=== PATIENT | female | born 1960 | race Caucasian/White ===

== ENCOUNTER 2018-02-07 11:56 | Emergency (ER) | payer BC ==
[2018-02-07] MEDS ORDERED: diPHENhydraMINE IV* 50 MG/ML 1 ml VIAL (BENADRYL) ONE (12:03)
[2018-02-07] MEDS ORDERED: methylPREDNISolone 125 MG* 2 ML VIAL ONE (12:03)
[2018-02-07] MEDS ORDERED: Famotidine IV* 10 MG/ML 2 ML (20 mg) ONE ×2 (12:03)
--- NOTE | 2018-02-07 12:10 | ED ---
Allergic Reaction/Systemic - HPI Summary HPI Summary: This patient is a 57 year old F presenting to ED with a chief complaint of anaphylaxis since a bit before 1100. The patient was stung by a bee on the upper lip. She has not had an allergic reaction to bees before. Treatment [employer] includes 2 Benadryl. The patient rates the pain 0/10 in severity. Symptoms aggravated by nothing. Symptoms alleviated by nothing. Patient reports slight throat tightness and face swelling. Patient denies wheezing, nausea, vomiting, light-headedness, and dizziness. Initial vitals include 83 BPM, 95 O2 sat, and BP 166/108. Current vitals after treatment include 85 BPM, 99 O2 sat, and BP 154 /103. Home Medications Medication Instructions Recorded Confirmed Type Lisinopril/HCTZ 20/12.5(NF) 1 tab PO DAILY 02/07/18 02/07/18 History [Zestoretic 20/12.5(NF)] Ropinirole TAB* [Requip TAB*] 0.5 mg PO DAILY 02/07/18 02/07/18 History - History of Current Complaint Chief Complaint: EDAllergicReaction Hx Obtained From: Patient Onset/Duration: Sudden Onset, Started hours ago - a bit before 1100 today, Still Present Timing: Constant, Lasting Hours - a bit before 1100 today Severity Currently: None Pain Intensity: 0 Pain Scale Used: 0-10 Numeric Location: Discrete @ - upper lip Character: Swelling - face Aggravating Factor(s): Nothing Alleviating Factor(s): Nothing Associated Signs And Symptoms: Positive: Other: - Patient reports slight throat tightness and face swelling. Patient denies wheezing, nausea, vomiting, light- headedness, and dizziness. - Allergies/Home Medications Allergies/Adverse Reactions: Allergies Allergy/AdvReac Type Severity Reaction Status Date / Time bee venom protein (honey bee) Allergy Anaphylatic Verified 02/07/18 12:21 Shock Home Medications: Home Medications Lisinopril/HCTZ 20/12.5(NF) [Zestoretic 20/12.5(NF)] 1 tab PO DAILY 02/07/18 [ History Confirmed 02/07/18] Ropinirole TAB* [Requip TAB*] 0.5 mg PO DAILY 02/07/18 [History Confirmed ] PMH/Surg Hx/FS Hx/Imm Hx Endocrine/Hematology History: Denies: Hx Diabetes Cardiovascular History: Reports: Hx Hypertension - Surgical History Surgery Procedure, Year, and Place: bone spur surgery Infectious Disease History: No Infectious Disease History: Denies: Traveled Outside the [place] in Last 30 Days - Family History Known Family History: Positive: Cardiac Disease - father, Diabetes - mother - Social History Alcohol Use: Occasionally - wine Hx Substance Use: No Hx Tobacco Use: No Review of Systems Positive: Other - bee sting on upper lip, face swelling, slight throat tightness Positive: Other - denies wheezing Negative: Vomiting, Nausea Neurological: Other - denies light-headedness and dizziness All Other Systems Reviewed And Are Negative: Yes Physical Exam - Summary Physical Exam Summary: Appearance: Well-appearing, moderate pain distress, well-nourished Skin: Warm, color reflects adequate perfusion, dry Head: Normal Head/Face inspection, atraumatic Eyes: Conjunctiva clear ENT: Normal inspection Neck: Supple, no nodes, no JVD Respiratory: Lungs clear, normal breath sounds, no respiratory distress Cardio: RRR, No murmur, pulses normal, brisk capillary refill Abdomen: Soft, nontender Bowel sounds: Present Musculoskeletal: Strength Intact/ROM intact, no calf tenderness, no edema. Psychological: Normal Neuro: Alert, muscle tone normal, no focal deficit Triage Information Reviewed: Yes Vital Signs On Initial Exam: Initial Vitals Temp Pulse Resp BP Pulse Ox 99.3 F 98 20 166/108 96 02/07/18 11:59 02/07/18 11:59 02/07/18 11:59 02/07/18 11:59 02/07/18 11:59 Vital Signs Reviewed: Yes Diagnostics - Vital Signs Vital Signs Temp Pulse Resp BP Pulse Ox 02/07/18 11:59 99.3 F 98 20 166/108 96 - Laboratory Lab Statement: Any lab studies that have been ordered have been reviewed, and results considered in the medical decision making process. Re-Evaluation - Re-Evaluation First Eval Re-Evaluation Time: 14:21 Change: Improved Comment: The patient's lip swelling is down and there is no throat tightness. Current vitals 82 BPM, 95% O2 sat, BP is 112/66. Allergic Reaction Course/Dx - Course Assessment/Plan: In the ED course, the patient was given an epi. Allergies noted. High blood pressure noted. Pt medications reviewed this visit. After given an epi, the patient's condition improved. The patient will be discharged. She was given instructions to continue Benadryl, Pepcid, and prednisone. The patient is agreeable with this plan. - Diagnoses Differential Diagnosis/HQI/PQRI: Positive: Other - elevated blood pressure under poor control, anaphylactic reaction to bee sting Provider Diagnoses: Elevated blood pressure reading with diagnosis of hypertension, Anaphylactic reaction to bee sting Discharge - Discharge Plan Condition: Stable Disposition: HOME Prescriptions: EPINEPHrine [Epipen] 0.3 mg IJ ONCE #1 auto.injct Famotidine TAB 40 MG(NF) [Pepcid TAB 40 MG(NF)] 40 mg PO DAILY #5 tab predniSONE TAB* [Deltasone 20 MG TAB*] 40 mg PO DAILY #10 tab Patient Education Materials: Anaphylaxis (ED) Referrals: Rima Bhandari MD [Primary Care Provider] - 3 Days Additional Instructions: We gave you Epinephrine, solumedrol, benadryl and pepcid while you were in the ER. You will need to continue the benadryl 50mg four times a day for at least the next 48 hrs, and then as needed. You may also take over the counter non-sedating medications, either Claritin or Zyrtec with the benadryl. We are sending prescriptions for pepcid and prednisone and an epipen. Start the prednisone and pepcid tomorrow. Call 911 if you get another beesting, and then administer your epipen. Return to the ER if you have new or worsening symptoms.
[2018-02-07 15:42] VITALS: BP 123/77
== END 2018-02-07 15:41 | disposition home or self-care (01) ==
LOC: ED 11:56
DX: T63.441A Toxic effect of venom of bees, accidental (unintentional), initial encounter (principal); T78.2XXA Anaphylactic shock, unspecified, initial encounter; X58.XXXA Exposure to other specified factors, initial encounter; R07.0 Pain in throat; R22.0 Localized swelling, mass and lump, head; I10 Essential (primary) hypertension; Z91.030 Bee allergy status; Z82.49 Family history of ischemic heart disease and other diseases of the circulatory system; Z83.3 Family history of diabetes mellitus
CPT/HCPCS: 99283; J1200; J2930